=== PATIENT | male | born 1955 | race Caucasian/White ===

== ENCOUNTER → 2020-12-09 | Outpatient (CLI) | payer MEDICARE, OTHER | LOC: US 08:58 | DX: Z13.6 Encounter for screening for cardiovascular disorders (principal); I72.3 Aneurysm of iliac artery | CPT/HCPCS: 76706 ==

== ENCOUNTER → 2021-01-07 | Outpatient (CLI) | payer MEDICARE, OTHER | LOC: CT 09:24 | DX: I72.3 Aneurysm of iliac artery (principal); K57.90 Diverticulosis of intestine, part unspecified, without perforation or abscess without bleeding; K40.90 Unilateral inguinal hernia, without obstruction or gangrene, not specified as recurrent; N43.3 Hydrocele, unspecified; K44.9 Diaphragmatic hernia without obstruction or gangrene | CPT/HCPCS: Q9967 ==

== ENCOUNTER 2021-06-23 09:04 | Emergency (ER) | payer MEDICARE, OTHER ==
[2021-06-23 09:44] LABS: HEMOGLOBIN 14.6 gm/dl (14.0-17.5); WHITE BLOOD COUNT 8.3 K/UL (4.5-11.0)
[2021-06-23 10:04] LABS: BUN/CREATININE RATIO 18 (0-10)
== END 2021-06-23 14:27 | disposition home or self-care (01) ==
LOC: ER1 09:04
PROVIDERS: Emergency Medicine
DX: K59.89 Other specified functional intestinal disorders (principal); E86.0 Dehydration; R11.0 Nausea; I10 Essential (primary) hypertension
CPT/HCPCS: 80053; 81001; 83735; 85025; 96374; 96375; 99284; C9113; J2405; J2765; Q9967

== ENCOUNTER → 2021-12-08 | Outpatient (CLI) | payer MEDICARE, OTHER ==
[~2021-12-08] MED LIST: COLACE 100MG C100 MG PO
== END ==
LOC: RAD 11:14
DX: R14.2 Eructation (principal); R10.9 Unspecified abdominal pain
CPT/HCPCS: 74018; 87338

== ENCOUNTER 2021-12-12 13:46 | Emergency (ER) | payer MEDICARE, OTHER ==
[2021-12-12 15:55] LABS: HEMOGLOBIN 15.1 gm/dl (14.0-17.5); RED BLOOD COUNT 5.17 M/UL (4.20-5.50); WHITE BLOOD COUNT 7.1 K/UL (4.5-11.0)
[2021-12-12 16:19] LABS: BUN/CREATININE RATIO 12 (0-10)
[2021-12-12] MEDS ORDERED: COLACE 100MG C100 MG PO (18:00)
== END 2021-12-12 18:16 | disposition home or self-care (01) ==
LOC: ER1 13:46
PROVIDERS: Physician Assistant
DX: R10.84 Generalized abdominal pain (principal); R10.819 Abdominal tenderness, unspecified site; E78.5 Hyperlipidemia, unspecified; I10 Essential (primary) hypertension; Z90.49 Acquired absence of other specified parts of digestive tract; Z79.899 Other long term (current) drug therapy
CPT/HCPCS: 80053; 81001; 82550; 82553; 83690; 84484; 85025; 93005; 99284; Q9967